=== PATIENT | female | born 1965 | race Caucasian/White ===

== ENCOUNTER 2021-02-01 17:16 | Emergency (ER) | payer BC ==
[2021-02-01 18:09] VITALS: BP 183/88; PULSE 78; RESP 16; TEMP 98.6
[2021-02-01] MEDS ORDERED: RABIES VACCINE (PCEC) 2.5 UNIT KIT IM ONE (18:48)
--- NOTE | 2021-02-01 18:58 | ED ---
General Adult HPI - General Source: patient, family, RN notes reviewed Mode of arrival: ambulatory Limitations: no limitations - History of Present Illness -: days(s) (13) Severity scale (1-10): 0 <Yehuda Ruiz - Last Filed: 02/01/21 23:04> <Savanah Castro - Last Filed: 02/05/21 14:27> - General Chief complaint: Recheck/Abnormal Lab/Rx Stated complaint: exposure to bats - History of Present Illness Initial comments: Patient states that on January 19 there was a bat in the home. They did call an linking machine operator who removed the bat and tested for rabies and was negative. There however was another bat in the home at the same time that they did not capture. She has been looking at information on the computer and has been recommended that they get the rabies vaccine. She denies any injuries or any problems. She does believe she was bitten but would like the vaccination. She states she is anxious and would rather be safe than sorry. (Yehuda Ruiz) - Related Data Allergies Allergy/AdvReac Type Severity Reaction Status Date / Time eggplant Allergy Itching Verified 02/04/21 09:05 erythromycin base Allergy Rash/Hives Verified 02/04/21 09:05 onion Allergy Itching Verified 02/04/21 09:05 Review of Systems ROS Other: All systems not noted in ROS Statement are negative. <Yehuda Ruiz - Last Filed: 02/01/21 23:04> ROS Other: All systems not noted in ROS Statement are negative. <Savanah Castro - Last Filed: 02/05/21 14:27> ROS Statement: Those systems with pertinent positive or pertinent negative responses have been documented in the HPI. Past Medical History Past Medical History: No Reported History History of Any Multi-Drug Resistant Organisms: None Reported Past Surgical History: Tonsillectomy Additional Past Surgical History / Comment(s): carpal tunnel Past Psychological History: Anxiety Smoking Status: Never smoker Past Alcohol Use History: None Reported Past Drug Use History: None Reported <Yehuda Ruiz - Last Filed: 02/01/21 23:04> General Exam Limitations: no limitations General appearance: alert, in no apparent distress Head exam: Present: atraumatic, normocephalic, normal inspection Eye exam: Present: normal appearance, PERRL, EOMI. Absent: scleral icterus, conjunctival injection, periorbital swelling ENT exam: Present: normal exam, normal oropharynx, mucous membranes moist Neck exam: Present: normal inspection. Absent: tenderness, meningismus, lymphadenopathy Respiratory exam: Present: normal lung sounds bilaterally. Absent: respiratory distress, wheezes, rales, rhonchi, stridor Cardiovascular Exam: Present: regular rate, normal rhythm, normal heart sounds. Absent: systolic murmur, diastolic murmur, rubs, gallop, clicks Extremities exam: Present: normal inspection, full ROM, normal capillary refill. Absent: tenderness, pedal edema, joint swelling, calf tenderness Back exam: Present: normal inspection Neurological exam: Present: alert, oriented X3, CN II-XII intact Psychiatric exam: Present: normal affect, normal mood, anxious Skin exam: Present: warm, dry, intact, normal color. Absent: rash <Yehuda Ruiz - Last Filed: 02/01/21 23:04> Course Vital Signs 02/01/21 18:06 Temperature 98.6 F Pulse Rate 78 Respiratory 16 Rate Blood Pressure 183/88 O2 Sat by Pulse 94 L Oximetry Medical Decision Making <Yehuda Ruiz - Last Filed: 02/01/21 23:04> <Savanah Castro - Last Filed: 02/05/21 14:27> - Medical Decision Making Patient was given rabies vaccine in the emergency room and directed to get rabies vaccine also on days 3, 7 and 14. Prescriptions were written for her. She was instructed to follow-up with her primary care doctor or return to the emergency room with any new or worsening symptoms. Case discussed with Dr. Castro (Yehuda Ruiz) I was available for consultation in the emergency department. The history and physical exam were done by the midlevel provider. I was consulted for this patients care. I reviewed the case with the midlevel provider and based on their presentation of the patient, I agree with the assessment, medical decision making and plan of care as documented. Chart was dictated using [employer] dictation software. Attempts were made to correct any dictation errors however some typographical errors may persist. Patient was seen during a national state of emergency due to the Covid-19 pandemic. (Savanah Castro) Disposition Is patient prescribed a controlled substance at d/c from ED?: No Time of Disposition: 18:57 <Yehuda Ruiz - Last Filed: 02/01/21 23:04> <Savanah Castro - Last Filed: 02/05/21 14:27> Clinical Impression: Rabies, need for prophylactic vaccination against Clinical Impression: (Ruled Out): Encounter for prophylactic rabies immune globin Disposition: HOME SELF-CARE Condition: Good Instructions (If sedation given, give patient instructions): Rabies Vaccine (ED) Additional Instructions: Return if any new or worsening symptoms including fever, nausea or vomiting. Referrals: None,Stated [Primary Care Provider] - 1-2 days
== END 2021-02-01 19:44 | disposition home or self-care (01) ==
LOC: EC 17:16
DX: Z20.3 Contact with and (suspected) exposure to rabies (principal)
CPT/HCPCS: 90471; 90675; 99283